=== PATIENT | female | born 1970 | race Caucasian/White ===

== ENCOUNTER 2017-05-06 17:04 | Emergency (ER) | payer MEDICARE, MEDICAID ==
[~2017-05-06] VITALS: Ht 180.3 cm; Wt 55.3 kg
[~2017-05-06 17:04] MED LIST: FENT50DI TD; PERC10TA27 PO; PHEN100 PO; PROP40TA3 PO; ZONI100C2 PO
[2017-05-06 17:17] VITALS: BP 101/56; PULSE 65; RESP 16; TEMP 98.3; O2SAT 97
--- NOTE | 2017-05-06 18:07 | PD ---
HPI Chief Complaint: Laceration/Skin Injury Time Seen by Provider: 18:01 Travel History International Travel<30 days: No Contact w/Intl Traveler<30days: No Traveled to known affect area: No History of Present Illness HPI [id number] female presents with laceration of the finger pad of the right index finger. It was sustained prior to arrival when she cut it with a "razor widget" that she was using to clean a window. She has pain, aching, worse with palpation, associated bleeding. Last tetanus vaccination unknown. No other complaints at this time. PFSH Past Medical History Cardiovascular Problems: Yes (HTN) Hypertension: Yes Seizures: Yes Past Surgical History Other Surgery: Yes (SPLEEN, OVARIAN CA) Social History Alcohol Use: No Tobacco Use: Yes Substance Use: No Allergies-Medications (Allergen,Severity, Reaction): Coded Allergies: penicillin G (Unverified Allergy, Unknown, 05/06/17) Reported Meds & Prescriptions Reported Meds & Active Scripts Active Reported Zonisamide 100 Mg Cap 400 Mg PO HS Phenytoin Extended 200 Mg Cap 200 Mg PO HS Oxycodone-Acetaminophen 10-325 mg Tab 1 Tab PO Q6H PRN Fentanyl Patch 72 HR (Fentanyl) 50 Mcg/Hr Patch 50 Mcg T-DERMAL Q72H Remove old patch when new one placed. Review of Systems General / Constitutional: No: Fever, Chills Skin: Positive Other (positive for laceration, pain, bleeding) Physical Exam Narrative GENERAL: Well-developed well-nourished female in no acute distress SKIN: Warm and dry. 1 cm linear full-thickness laceration finger pad of the right index finger. It does not cross joint lines. CARDIOVASCULAR: Regular rate and rhythm. No murmur appreciated. RESPIRATORY: No accessory muscle use. Clear to auscultation. Breath sounds equal bilaterally. Extremities: Skin as noted above. Distal sensation is preserved. Full range of motion. Data Data Last Documented VS Vital Signs Date Time Temp Pulse Resp B/P (MAP) Pulse Ox O2 Delivery O2 Flow Rate FiO2 05/06/17 17:17 98.3 65 16 101/56 (71) 97 Orders Orders Lidocaine 1% Inj (Xylocaine 1% Inj) (05/06/17 18:15) Tetanus/Diphtheria Tox Adult (Tetanus/Di (05/06/17 18:15) Ed Discharge Order (05/06/17 18:37) [facility] Medical Decision Making Medical Screen Exam Complete: Yes Emergency Medical Condition: Yes Medical Record Reviewed: Yes Differential Diagnosis Cutaneous laceration, open fracture, flexor tendon wound, neurovascular injury Narrative Course The patient has a laceration of the finger pad of the right index finger with no evidence of bone, neurovascular injury. The laceration will be repaired with sutures, she verbally consents. Tetanus status updated. Procedures Procedure Narrative LACERATION LOCATION: Right index finger LENGTH: 1 cm NUMBER OF STITCHES/GÓMEZ: 4 REPAIR: The area of the laceration was prepped with Betadine and sterilely draped. The laceration was infiltrated with 1% lidocaine digital block. The wound was copiously irrigated and explored without evidence of foreign body, tendon injury or neurovascular injury. The wound was closed using 5-0 proline simple interrupted This was a single layer repair. A sterile dressing was applied. The patient was advised to keep the dressing clean and dry. Patient tolerated the procedure well. Diagnosis Primary Impression: Finger laceration Additional Instructions: Wash the wound with soap and water and apply antibiotic cream daily. Return in 10-14 days for suture removal. Med/Other Pt SpecificInfo: Wound Care Disposition: DISCHARGE HOME Condition: Stable Kel Sandoval May 06, 2017 18:07
[2017-05-06] MEDS ORDERED: TETANUS/DIPHTHERIA TOXOID ADULT 0.5 ML VIAL IM ONE (18:15)
[2017-05-06] MEDS ORDERED: LIDOCAINE HCL 1% 20 ML VIAL INFIL ONE (18:15)
[2017-05-06] MEDS ORDERED: OXYC1TAB36 PO (18:17)
[2017-05-06] MEDS ORDERED: PHEN200C3 PO (18:17)
[2017-05-06] MEDS ORDERED: ZONI100C2 PO (18:17)
[2017-05-06] MEDS ORDERED: FENT50DI T-DERMAL (18:17)
== END 2017-05-06 18:51 | disposition home or self-care (01) ==
LOC: PHED 17:04 → PHEFT 18:51
DX: S61.210A Laceration without foreign body of right index finger without damage to nail, initial encounter (principal); I10 Essential (primary) hypertension; G40.909 Epilepsy, unspecified, not intractable, without status epilepticus; Z23 Encounter for immunization; Z72.0 Tobacco use; W45.8XXA Other foreign body or object entering through skin, initial encounter
CPT/HCPCS: 12001; 90471; 90714